=== PATIENT | female | born 1970 | race Caucasian/White ===

== ENCOUNTER → 2017-02-14 | Outpatient (CLI) | payer BC ==
[~2017-02-14] MED LIST: ROBAXIN500 MG PO
--- NOTE | ~2017-02-14 | ST ---
Unit #: [id number] #: [id number] Patient: GABRIELA ABBOTT [id number] [address] [address] [id number] O MR#: [id number] NAME: GABRIELA ABBOTT. : 1970 SEX: F STUDY DATE/TIME: 02/14/2017 UNIT: [facility] ROOM: STUDY DESCRIPTION: Stress Test Attending Physician: Amanuel Gill M.D. Referring Physician: Amanuel Gill M.D. Primary Care Physician: Mac Ty M.D. CARDIOLOGY REPORT EXAM Stress Test INDICATIONS Chest discomfort/pain. SUMMARY The patient exercised on Rafa protocol for 5 minutes 54 seconds achieving a workload METs of 7. The patient's resting heart rate was 62 beats/minute which increased to 148 beats/minute representing 85% of the maximum age-predicted heart rate. Patient's resting blood pressure was 137/83 mmHg which increased to 168/80 mmHg with exercise. The patient's test was stopped due to fatigue and also target reached. The patient's resting ECG reveals normal sinus rhythm with normal ST segments. The patient's ECG during stress shows sinus tachycardia with nonspecific ST segment changes, not meeting ischemic threshold. There is no ventricular or supraventricular ectopy noted. There is no pause noted. CONCLUSION 1. Negative treadmill ECG portion of the Cardiolite study for ischemia. 2. Fair exercise tolerance. 3. Appropriate blood pressure and heart rate response to exercise. 4. Perfusion imaging dictated separately. Dictated by... Kwadwo Pantoja M.D. MS/df TD: 02/15/2017 06:51 JOB #: [id number] Unit #: [id number] #: [id number] Patient: GABRIELA ABBOTT CARDIOLOGY REPORT Page 1 of 1 X KWADWO PANTOJA MD CARDIOLOGY REPORT
--- NOTE | ~2017-02-14 | TH ---
Unit #: [id number] #: [id number] Patient: GABRIELA ABBOTT [id number] [address] [address] [id number] O MR#: [id number] NAME: GABRIELA ABBOTT : 1970 SEX: F STUDY DATE/TIME: 02/14/2017 UNIT: [facility] ROOM: STUDY DESCRIPTION: Nuclear Study Attending Physician: Amanuel Gill M.D. Referring Physician: Amanuel Gill M.D. Primary Care Physician: Mac Ty M.D. CARDIOLOGY REPORT EXAM Perfusion Imaging SUMMARY Patient underwent nuclear stress test. Received a resting dose of 10.61 mCi and a stress dose of 32.1 mCi. On gated imaging, the patient appears to have normal wall motion with a preserved ejection fraction. The patient's LVEF is 57%. On perfusion imaging, comparing rest and stress images, there appears to be no reversible perfusion defects. On raw images, no abnormal uptake seen. CONCLUSION 1. There is no obvious ischemia. 2. Preserved ejection fraction. 3. LVEF 57%. 4. ECG portion will be dictated separately. Dictated by... Kwadwo Pantoja M.D. [place]/fady TD: 02/15/2017 06:57 JOB #: [id number] CARDIOLOGY REPORT Page 1 of 1 X KWADWO PANTOJA MD CARDIOLOGY REPORT
== END | disposition home or self-care (01) ==
LOC: CNUC 08:48
DX: R07.9 Chest pain, unspecified (principal); R06.00 Dyspnea, unspecified
CPT/HCPCS: 78452; 93017; 93306; A9500